=== PATIENT | male | born 1990 | race Caucasian/White ===

== ENCOUNTER 2018-08-30 11:40 | Emergency (ER) | payer BC | END 2018-08-30 12:38 | disposition home or self-care (01) | LOC: MADERS 11:40 | DX: S29.011A Strain of muscle and tendon of front wall of thorax, initial encounter (principal); S40.812A Abrasion of left upper arm, initial encounter; F90.9 Attention-deficit hyperactivity disorder, unspecified type; F17.210 Nicotine dependence, cigarettes, uncomplicated; Z79.899 Other long term (current) drug therapy; V89.2XXA Person injured in unspecified motor-vehicle accident, traffic, initial encounter | CPT/HCPCS: 99283 ==